=== PATIENT | male | born 1980 | race Caucasian/White ===

== ENCOUNTER 2017-06-25 05:52 | Emergency (ER) | payer OTHER ==
[~2017-06-25] VITALS: Ht 177.8 cm; Wt 96.5 kg
[~2017-06-25 05:52] MED LIST: AMOX1TAB67 PO; CHOL50009 PO; DENIES; GLIP-95 PO; HYDR-762 PO; HYDR-906 PO; IBUP400T22 PO; LISI10TA2 PO; METF500T4 PO; SIMV20TA6 PO
[2017-06-25 06:00] VITALS: Ht 177.8 cm; Wt 96.5 kg
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
[2017-06-25 13:26] VITALS: BP 111/67; PULSE 67; RESP 16; TEMP 98.7
[2017-06-25] MEDS ORDERED: ACET500C5 PO (14:00)
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
== END 2017-06-25 14:16 | disposition home or self-care (01) ==
LOC: FTE 05:52
DX: S89.92XA Unspecified injury of left lower leg, initial encounter (principal); I10 Essential (primary) hypertension; E11.9 Type 2 diabetes mellitus without complications; F17.210 Nicotine dependence, cigarettes, uncomplicated; R51 Headache; Y08.02XA Assault by strike by baseball bat, initial encounter; Z79.84 Long term (current) use of oral hypoglycemic drugs
CPT/HCPCS: 70450; 72125; 73080; 73090; 73130; 73562; Z7502; Z7610